=== PATIENT | female | born 1980 | race American Indian/Alaskan Native ===

== ENCOUNTER 2018-09-24 03:47 | Emergency (ER) | payer MEDICARE ==
[2018-09-24 04:35] VITALS: BP 133/82
[2018-09-24 04:47] LABS: Basophils % (Auto) 0.6 % (0.0-1.8); Eosinophils # (Auto) 0.1 K/mm3 (0.0-0.4); Eosinophils % (Auto) 1.2 % (0.0-4.3); Hematocrit 35.3 % (30.3-42.9); Hemoglobin 12.1 gm/dl (10.1-14.3); Lymphocytes # (Auto) 3.2 K/mm3 (1.2-5.4); Lymphocytes % (Auto) 41.6 % (13.4-35.0); Mean Corpuscular HGB Conc 34 % (30-34); Mean Corpuscular Volume 89 fl (79-97); Monocytes # (Auto) 0.6 K/mm3 (0.0-0.8); Monocytes % (Auto) 7.4 % (0.0-7.3); Platelet Count 524 K/mm3 (140-440); Red Blood Count 3.96 M/mm3 (3.65-5.03); Red Cell Distribution Width 13.2 % (13.2-15.2)
[2018-09-24] MEDS ORDERED: TORADOL IM ONE (04:55)
--- NOTE | 2018-09-24 05:01 | Emergency Department Report ---
ED General Adult HPI - General Chief complaint: Chest Pain Stated complaint: STIFFNESS IN RIGHT SIDE Time Seen by Provider: 09/24/18 04:23 Source: patient Mode of arrival: Ambulatory Limitations: No Limitations - History of Present Illness Initial comments: Patient is a 38-year-old female with no significant past medical history. Patient presented to the ER complaining of right shoulder stiffness and chest pain started today. Patient stated that she had this episode before and she usually relieved by getting all from 100 mg and colanazepam 2 mg. She denied any shortness of breath. No abdominal pain nausea or vomiting. Patient noticed to ambulate to the bathroom with no acute distress or stiffness. Severity scale (0 -10): 8 - Related Data Allergies Allergy/AdvReac Type Severity Reaction Status Date / Time No Known Allergies Allergy Unverified 09/24/18 03:49 ED Review of Systems ROS: Stated complaint: STIFFNESS IN RIGHT SIDE Other details as noted in HPI Comment: All other systems reviewed and negative Constitutional: denies: chills, fever Respiratory: denies: cough, orthopnea, shortness of breath, SOB with exertion, wheezing Cardiovascular: chest pain. denies: palpitations, dyspnea on exertion Gastrointestinal: denies: abdominal pain, nausea, vomiting, diarrhea, constipation, hematemesis Neurological: denies: headache, weakness, numbness, paresthesias ED Past Medical Hx - Past Medical History Hx Psychiatric Treatment: Yes (anxiety) - Surgical History Past Surgical History?: Yes Additional Surgical History: c/s - Social History Smoking Status: Never Smoker Substance Use Type: None ED Physical Exam - General Limitations: No Limitations General appearance: alert, in no apparent distress, anxious - Head Head exam: Present: atraumatic, normocephalic, normal inspection - Eye Eye exam: Present: normal appearance, PERRL - ENT ENT exam: Present: normal exam, normal orophraynx, mucous membranes moist - Neck Neck exam: Present: normal inspection, full ROM. Absent: tenderness, meningismus, lymphadenopathy, thyromegaly - Respiratory Respiratory exam: Present: normal lung sounds bilaterally - Cardiovascular Cardiovascular Exam: Present: regular rate, normal rhythm, normal heart sounds - GI/Abdominal GI/Abdominal exam: Present: soft, normal bowel sounds. Absent: distended, tenderness, guarding, rebound, rigid, organomegaly, mass, bruit, pulsatile mass - Extremities Exam Extremities exam: Present: normal inspection, full ROM, normal capillary refill - Back Exam Back exam: Present: normal inspection, full ROM. Absent: CVA tenderness (R), CVA tenderness (L) - Neurological Exam Neurological exam: Present: alert, oriented X3, CN II-XII intact, normal gait, reflexes normal - Skin Skin exam: Present: warm, intact, normal color ED Course Vital Signs 09/24/18 09/24/18 09/24/18 03:55 04:30 04:40 Temperature 98.9 F Pulse Rate 122 H 102 H Respiratory 18 18 16 Rate Blood Pressure 141/86 133/82 O2 Sat by Pulse 100 100 100 Oximetry 09/24/18 05:16 Temperature Pulse Rate 105 H Respiratory 14 Rate Blood Pressure 133/82 O2 Sat by Pulse 100 Oximetry ED Medical Decision Making - Lab Data Result diagrams: 09/24/18 04:18 09/24/18 04:18 - EKG Data -: EKG Interpreted by Nd EKG shows normal: sinus rhythm Rate: normal - EKG Data Interpretation: no acute changes - Medical Decision Making Patient is a 38-year-old female with no significant past medical history. Patient presented to the ER complaining of right shoulder stiffness and chest pain started today. Patient stated that she had this episode before and she usually relieved by getting all from 100 mg and colanazepam 2 mg. She denied any shortness of breath. No abdominal pain nausea or vomiting. EKG is unremarkable. Labs reviewed and is unremarkable. Patient has an obvious pain management issue, she stated that she is following with a pain clinic. Patient is asking for a specific medication which is a combination of tramadol and clonazepam. Patien will need to follow-up with her pain medicine doctor for such a medication. Patient received Toradol 60 IM. Critical care attestation.: If time is entered above; I have spent that time in minutes in the direct care of this critically ill patient, excluding procedure time. ED Disposition Clinical Impression: Right shoulder pain Disposition: -01 TO HOME OR SELFCARE Is pt being admited?: No Condition: Stable Instructions: Musculoskeletal Pain (ED) Referrals: PRIMARY CARE, [Primary Care Provider] - 3-5 Days
[2018-09-24 05:04] LABS: BUN/Creatinine Ratio 10; Blood Urea Nitrogen 10 mg/dL (7-17); Calcium 9.3 mg/dL (8.4-10.2); Hemolysis Index 7
== END 2018-09-24 05:50 | disposition home or self-care (01) ==
LOC: ED 03:47
DX: M25.511 Pain in right shoulder (principal); R07.9 Chest pain, unspecified
CPT/HCPCS: 36415; 80048; 84484; 85025; 93005; 93010; 96372; 99284; J1885